=== PATIENT | female | born 1945 | race Caucasian/White ===

== ENCOUNTER → 2017-09-09 10:16 | Outpatient (CLI) | payer MEDICARE ==
[~2017-09-09 10:16] MED LIST: ALBUTEROL2.5 MG/3 M INH; ATROVENT 0.02%2.5 ML UPD; CARBIDOPA-LEVO1 EAC2 PO; FLUTICASONE PRO16 GM NASAL; LEVOTHYROXINE125 MCG PO; METOPROLOL TART25 MG PO; MOBIC7.5 MG PO; PROZAC10 MG PO; TRELEGY ELLIPTA INH; VENTOLIN HFA18 GM INH; ZYRTEC10 MG PO
== END | disposition home or self-care (01) ==
LOC: D.MRI 10:16
DX: S83.221A Peripheral tear of medial meniscus, current injury, right knee, initial encounter (principal)

== ENCOUNTER → 2017-11-04 14:36 | Outpatient (CLI) | payer MEDICARE | END | disposition home or self-care (01) | LOC: D.MRI 14:36 | DX: M25.551 Pain in right hip (principal) ==

== ENCOUNTER 2017-11-18 05:15 | Day surgery (SDC) | payer MEDICARE ==
[2017-11-16 09:50] LABS: BASOPHILS 0.6 % (0-2); EOSINOPHILS 3.3 % (0-7); HEMATOCRIT 41.7 % (36.0-48.0); HEMOGLOBIN 14.2 g/dL (12-16); IMMATURE GRANULOCYTES 0.1 % (0-5); LYMPHOCYTES 20.2 % (15-50); MCH 33.3 pg (26.0-34.0); MCHC 34.1 g/dL (31.0-37.0); MCV 97.7 fL (80.0-100.0); MEAN PLATELET VOLUME 11.2 fL (7.4-10.4); MONOCYTES 8.7 % (2-11); NEUTROPHILS 67.1 % (40-80); PLATELET COUNT 230 10x3/uL (130-400); RBC 4.27 10x6/uL (4.00-5.40); RDW 13.6 % (11.5-14.5)
[2017-11-16 09:56] LABS: ANION GAP 11.2 mmol/L (8-16); CALCIUM 8.7 mg/dL (8.5-10.1); CREATININE - SERUM 1.1 mg/dL (0.6-1.3); POTASSIUM - SERUM 4.2 mmol/L (3.5-5.1)
[~2017-11-18] VITALS: Ht 172.7 cm; Wt 97.5 kg
[2017-11-18 06:13] VITALS: BP 122/47; Ht 172.7 cm; Wt 97.5 kg
== END 2017-11-18 10:30 | disposition home or self-care (01) ==
LOC: D.OPS 05:15 → D.PAN 07:30 → D.OPS 10:30
PROVIDERS: Orthopaedic Surgery
DX: S83.281A Other tear of lateral meniscus, current injury, right knee, initial encounter (principal); M13.861 Other specified arthritis, right knee; M94.261 Chondromalacia, right knee; M65.861 Other synovitis and tenosynovitis, right lower leg; Z01.812 Encounter for preprocedural laboratory examination

== ENCOUNTER 2017-12-04 11:31 | Emergency (ER) | payer MEDICARE ==
[~2017-12-04] VITALS: Ht 172.7 cm; Wt 90.9 kg
[2017-12-04 11:37] VITALS: Ht 172.7 cm; Wt 90.9 kg
[2017-12-04 12:22] LABS: BASOPHILS 0.8 % (0-2); EOSINOPHILS 3.3 % (0-7); HEMATOCRIT 42.6 % (36.0-48.0); HEMOGLOBIN 14.2 g/dL (12-16); IMMATURE GRANULOCYTES 0.2 % (0-5); LYMPHOCYTES 22.8 % (15-50); MCH 32.7 pg (26.0-34.0); MCHC 33.3 g/dL (31.0-37.0); MCV 98.2 fL (80.0-100.0); MEAN PLATELET VOLUME 11.4 fL (7.4-10.4); MONOCYTES 7.7 % (2-11); NEUTROPHILS 65.2 % (40-80); PLATELET COUNT 251 10x3/uL (130-400); RBC 4.34 10x6/uL (4.00-5.40); RDW 13.3 % (11.5-14.5); WBC 6.6 10x3/uL (4.8-10.8)
[2017-12-04 12:40] LABS: ALBUMIN 3.7 g/dL (3.4-5.0); ALKALINE PHOSPHATASE 72 U/L (46-116); ALT (SGPT) 27 U/L (10-68); BILIRUBIN - TOTAL 0.52 mg/dL (0.2-1.3); CALC OSMOLALITY 286 mosm/kg (275-300); CALCIUM 8.8 mg/dL (8.5-10.1); CARBON DIOXIDE 26.6 mmol/L (21.0-32.0); CHLORIDE - SERUM 106 mmol/L (98-107); CREATININE - SERUM 1.1 mg/dL (0.6-1.3); GLUCOSE 88 mg/dL (74-106); POTASSIUM - SERUM 4.2 mmol/L (3.5-5.1); PROTEIN - SERUM 6.5 g/dL (6.4-8.2); SODIUM 143 mmol/L (136-145); UREA NITROGEN 21 mg/dL (7-18); eGFR NON AFRICAN AMERICAN 52 mL/min (90-120)
[2017-12-04 12:41] LABS: C-REACTIVE PROTEIN < 0.2 mg/dL (0.0-0.9)
[2017-12-04] MEDS ORDERED: AUGMENTIN 875-11 TAB PO (13:19)
[2017-12-04 13:39] VITALS: BP 157/63
[2017-12-04 14:34] LABS: ERYTHROCYTE SEDIMENTATION RATE 4 mm/hr (0-30)
== END 2017-12-04 13:37 | disposition home or self-care (01) ==
LOC: D.ER 11:31
PROVIDERS: Family Medicine
DX: Z98.890 Other specified postprocedural states (principal); R22.41 Localized swelling, mass and lump, right lower limb; I10 Essential (primary) hypertension; I25.810 Atherosclerosis of coronary artery bypass graft(s) without angina pectoris; J44.9 Chronic obstructive pulmonary disease, unspecified; K21.9 Gastro-esophageal reflux disease without esophagitis

== ENCOUNTER → 2018-07-27 12:36 | Outpatient (CLI) | payer MEDICARE ==
[2017-12-04 11:37] VITALS: BMI 30.4
[~2018-07-27 12:36] MED LIST changes: +AUGMENTIN 875-11 TAB PO
[2018-08-02 15:11] LABS: IMMUNOGLOBULIN E 102 IU/mL (6-495)
== END | disposition home or self-care (01) ==
LOC: D.RT 12:36
PROVIDERS: ATTEND Internal Medicine Pulmonary Disease
DX: J44.9 Chronic obstructive pulmonary disease, unspecified (principal); J45.909 Unspecified asthma, uncomplicated

== ENCOUNTER 2018-09-13 12:04 | Observation (INO) | payer MEDICARE ==
[~2018-09-13] VITALS: Ht 172.7 cm; Wt 95.9 kg
--- NOTE | ~2018-09-13 | OP ---
PATIENT NAME: ЮЛИЯ SANTACRUZ SANDY MEDICAL RECORD: [id number] :45 LOCATION:[facility] ADMISSION DATE: SURGEON: DEWAYNE RODRIGUEZ MD DATE OF OPERATION: 09/13/2018 PREOPERATIVE DIAGNOSES: 1. Symptomatic bradycardia. 2. Syncopal episode. POSTOPERATIVE DIAGNOSES: 1. Symptomatic bradycardia. 2. Syncopal episode. PROCEDURE: Left subclavian vein dual lead pacemaker placement. SURGEON: Dewayne Rodriguez MD CO-SURGEON: Barrington Todd MD REPORT OF OPERATION: The patient's left chest was prepped and draped in sterile fashion. A 20 mL of 1% lidocaine with epinephrine was infused into the surrounding tissues. A transverse superolateral chest incision was made and a subcutaneous pouch was made over the pectoral fascia. Franklin were used to cannulate the left subclavian veins times 2 and guidewires were advanced with ease. Fluoro was used to note that the wires were in good position in the venous system. Dilator and trocar device was placed over the wires and the wires and dilators were removed. The 2 leads were placed in the venous system, and at this point, Dr. Todd positioned the leads appropriately in the atrium and the ventricle. Once they were noted to be functioning appropriately, then these were sutured into place with #0 Ti-Crons. The leads were affixed to the pacemaker and the pacemaker was placed in the subcutaneous pouch and sutured to the pectoral fascia using a single interrupted #0 Ti-Cron. We irrigated out the wound with antibiotic solution and then closed the subcutaneous tissues with interrupted 3-0 Vicryl. The skin was closed with running subcutaneous 5-0 Monocryl and dressed appropriately. COMPLICATIONS: None. CONDITION: Stable. ANESTHESIA: Local MAC. BLOOD LOSS: Minimal. TRANSINT:[id number] Voice Confirmation ID: [id number] DOCUMENT ID: [id number] DEWAYNE RODRIGUEZ MD CC: [id number] DICTATION DATE: 09/13/18 161 GLUTEN SETTLING TENDER: 09/13/18 1701 [facility] [address] [place] [id number]
--- NOTE | ~2018-09-13 | HEMODYNAMI ---
PATIENT:ЮЛИЯ SANTACRUZ JULY MEDICAL RECORD: [id number] : 45 [id number] ADMISSION DATE: 09/13/18 Generatedon:09/13/201819:55 Patient name: ЮЛИЯ SANTACRUZ Patient #: [id number] SSN: : 1945 Date of study: 09/13/2018 Page: Of Hemodynamic Procedure Report Patient Data Patient Demographics Procedure consent was obtained First Name: ЮЛИЯ Gender: Female Last Name: NEETA : 1945 Middle Initial: JULY Age: 72 year(s) Patient #: [id number] Race: Unknown Additional ID: [id number] Contact details [address]: [address] [place] [address] State: [place] City: [place] Zip code: [address] Past Medical History Allergies Allergen Reaction Date Comments Reported Other allergy 09/13/2018 LASIX Other allergy 09/13/2018 furosemide Admission Admission Data Admission Date: 09/13/2018 Admission Time: 17:23 Room #: D.2124 Weight (lbs.): 211.64 Weight (kg.): 96 Lab Results Lab Result Date: 09/13/2018 Lab Result Time: 0:00 Biochemistry Name Units Result Min Max BUN mg/dl 29 --(----)-* 7 18 Creatinine mg/dl 1.2 --(---*)-- 0.6 1.3 eGFR ml/min 47 *-(----)-- 90 120 NONAFRICAN CBC Name Units Result Min Max Hematocrit % 41.9 -*(----)-- 42 54 Hemoglobin g/dl 14.1 --(*---)-- 13.5 17.5 Procedure Procedure Types Cath Procedure Diagnostic Procedure PPM/ICD Permanent Pacer Lead Repos. Procedure Description Procedure Date Procedure Date: 09/13/2018 Procedure Start Time: 19:26 Procedure Staff Name Function Barrington Hickey MD Performing Physician Davidson Ignacio MD Assisting physician Stephanie Morrissey RN Nurse Brayden Diego RT Scrub Anthony Allen RT Monitor Procedure Data Cath Procedure Fluoroscopy Diagnostic fluoroscopy Total fluoroscopy Time: 1.6 time: 1.6 min min Diagnostic fluoroscopy Total fluoroscopy dose: 54 dose: 54 mGy mGy Contrast Material Contrast Material Type Amount (ml) Isovue 300 0 Estimated blood loss: 5 ml Procedure Complications No complications Procedure Medications Medication Administration Route Dosage 0.9% NaCl I.V. 100 ml/hr Oxygen etCO2 Nasal cannula 2 l/min Lidocaine 1% with added to field 20 ml Epi Ancef (1Gm/50ml NS) I.V.P.B 1 g Ancef Irrigation Topical 1 g (1gm/500ml NS) Versed I.V. 2 mg Fentanyl I.V. 50 mcg Versed I.V. 2 mg Fentanyl I.V. 50 mcg Hemodynamics Rest HGB: 14.1 (g/dl) Heart Rate: 137 (bpm) Snapshots Pre Cath Intra NCS Post Cath Vital Signs Time Heart Resp SPO2 etCO2 NIBP (mmHg) Rhythm Pain Sedation Rate (ipm) (%) (mmHg) Status Level (bpm) 19:06:02 123 10 97 27.6 162/78(102) Paced 0 (11) 10(A) , No pain 19:11:01 130 13 100 31.4 Measuring Paced 0 (11) 10(A) , No pain 19:11:26 67 14 100 31.4 165/81(123) Paced 0 (11) 10(A) , No pain 19:15:48 114 17 98 35.1 138/63(97) Paced 0 (11) 10(A) , No pain 19:20:47 89 15 98 26.9 Measuring Paced 0 (11) 10(A) , No pain 19:21:08 131 10 98 22.4 137/68(90) Paced 0 (11) 10(A) , No pain 19:25:26 130 14 98 40.4 130/60(101) Paced 0 (11) 10(A) , No pain 19:29:42 104 12 98 29.9 131/70(107) Paced 0 (11) 10(A) , No pain 19:34:06 85 16 98 30.7 102/63(86) Paced 0 (11) 10(A) , No pain 19:39:05 68 11 100 22.4 Measuring Paced 0 (11) 10(A) , No pain 19:39:07 68 11 100 18.7 132/73(104) Paced 0 (11) 10(A) , No pain 19:43:29 88 13 100 25.4 151/73(103) Paced 0 (11) 10(A) , No pain 19:48:28 69 10 100 29.2 Measuring Paced 0 (11) 10(A) , No pain 19:48:57 71 12 100 30.7 140/69(105) Paced 0 (11) 10(A) , No pain 19:53:25 71 8 100 5.9 158/66(99) Paced 0 (11) 10(A) , No pain Medications Time Medication Route Dose Verified Delivered Reason Notes Effectiv eness by by 19:13:46 0.9% NaCl I.V. 100 Barrington Stephanie ml/hr St Darryl Morrissey MD RN 19:14:07 Oxygen etCO2 2 Barrington Stephanie used for Nasal l/min [facility] Darryl Morrissey procedure cannula RN 19:14:14 Lidocaine added 20 ml Davidson Cedeño for local 1% with Epi to Mateus Ignacio MD anesthetic field 19:14:26 Ancef I.V.P.B 1 g Davidson Brown Per (1Gm/50ml Mateus Morrissey physician NS) RN 19:14:37 Ancef Topical 1 g Davidson Cedeño used for Irrigation Mateus Ignacio MD procedure (1gm/500ml NS) 19:23:19 Versed I.V. 2 mg Barrington Stephanie for [facility] Darryl Morrissey sedation RN 19:23:25 Fentanyl I.V. 50 Barrington Stephanie [place] [facility] [place] [facility] Morrissey sedation RN 19:28:29 Versed I.V. 2 mg Barrington Stephanie for [facility] Darryl Morrissey sedation RN 19:28:33 Fentanyl I.V. 50 Barrington Cosbyyla for [facility] [place] [facility] Darryl Morrissey sedation heel finisher Log Time Note 18:35:50 Patient Weight : 211.64 lbs 18:38:06 Informed consent obtained and on chart 18:40:09 Procedure type changed to Cath procedure, Diagnostic procedure, PPM/ICD, Permanent Pacer Lead Repos. 18:41:25 Procedure Status PPM/ Gen Change/ Lead Revision/ Temp. 18:41:32 Time tracking: Stay late (Procedures after 5:00pm) 18:47:54 Brayden Diego RT(R) sent for patient. Start room use. 18:54:07 Plan of Care:Hemodynamics will remain stable., Cardiac rhythm will remain stable., Comfort level will be maintained., Respiratory function will remain adequate., Patient/ family verbilizes understanding of procedure., Procedure tolerated without complication., Recovers from procedure without complications.. 18:54:12 Patient received from Med II to CCL 1 Alert and oriented. Tansferred to table in Supine position. 18:54:13 Warm blankets applied, and nestor hugger turned on for patient comfort. 18:54:15 Correct patient and procedure confirmed by team. 18:54:15 ECG and BP/O2 sat monitors applied to patient. 18:54:16 Pre-procedure instructions explained to patient. 18:54:17 Pre-op teaching completed and patient verbalized understanding. 19:04:34 Vital chart was started 19:07:55 Baseline sample Acquired. 19:07:58 Rhythm: sinus rhythm , paced 19:08:00 Full Disclosure recording started 19:08:22 [employer] outside energy sales representatives Kennedy Schmid present for procedure. 19:09:53 Family in patients room. 19:10:02 Patient NPO since Breakfast. 19:10:24 Patient allergic to Other allergyfurosemide 19:11:05 Is the patient allergic to Iodine/contrast media? No. 19:11:24 Is patient on blood thinner?No 19:11:55 Patient diabetic? No. 19:12:00 Previous problem with sedation/anesthesia? No ? 19:12:01 Snore? Yes 19:12:02 Sleep apnea? Yes 19:12:14 Deviated septum? No 19:12:14 Opens mouth fully? Yes 19:12:17 Sticks out tongue? Yes 19:12:23 Airway obstruction? Yes COPD 19:12:32 Dentures? No ? 19:12:36 Patient pain scale 0/10 ?. 19:12:40 IV patent on arrival in right forearm with 0.9% NaCl at [facility]. 19:13:46 0.9% NaCl 100 ml/hr I.V. was administered by Stephanie Morrissey RN; ; 19:14:07 Oxygen 2 l/min etCO2 Nasal cannula was administered by Stephanie Morrissey RN; used for procedure; 19:14:14 Lidocaine 1% with Epi 20 ml added to field was administered by Davidson Ignacio MD; for local anesthetic; 19:14:26 Ancef (1Gm/50ml NS) 1 g I.V.P.B was administered by Stephanie Morrissey RN; Per physician; 19:14:37 Ancef Irrigation (1gm/500ml NS) 1 g Topical was administered by Davidson Ignacio MD; used for procedure; 19:14:54 Lab results completed and on chart. 19:19:42 Grounding pad site Left thigh. 19:19:44 Grounding pad site free from injury. 19:20:02 H&P Date Dictated: 09/13/2018 Within 30 days and on chart.. 19:20:13 Left chest area was prepped with chlora-prep and draped in sterile fashion 19:20:14 Alarms reviewed by R. N. 19:20:33 Pre sharps counted by scrub and verified by RN: Sutures: 15; Sponges: 5; Stick needles: 0; Skin needles: 2; Blade: 1; Cautery: 1 19:21:18 Physician arrived 19:21:18 --------ALL STOP TIME OUT------ 19:21:18 Final Timeout: patient, procedure, and site verified with staff and physician. All members of the team are in agreement. 19:21:23 Left chest site verified by team. 19:21:29 Fire Safety Assessment: A--An alcohol-based skin anteseptic being used preoperatively., B--The operative or invasive procedure is being performed above the xiphoid process or in the oropharynx., C--Open oxygen or nitrous oxide is being used. 19:21:34 Physical assessment completed. ASA score P 2 - A patient with mild systemic disease as per Barrington Hickey MD. 19:21:38 Sedation plan: IV Moderate Sedation Medication:Versed, Fentanyl 19:23:19 Versed 2 mg I.V. was administered by Stephanie Morrissey RN; for sedation; 19:23:25 Fentanyl 50 mcg I.V. was administered by Stephanie Morrissey RN; for sedation; 19:26:31 Lidocaine 2% was administered to left subclavicular area by Davidson Ignacio MD . 19:26:51 Incision made to left subclavicular area. 19:27:36 Use device set MICHAEL PPM 19:27:37 2-0 Ticron Multipack ([id number]) opened to sterile field. 19:27:38 3-0 Vicryl Single Pack [id number] opened to sterile field. 19:27:39 5-0 Monocryl PS2 [id number] opened to sterile field. 19:27:39 Cautery Tip Bid Manager opened to sterile field. 19:27:40 Cautery Pushbutton Pencil opened to sterile field. 19:27:40 Mepilex Dressing ([id number]) opened to sterile field. 19:28:29 Versed 2 mg I.V. was administered by Stephanie Morrissey RN; for sedation; 19:28:33 Fentanyl 50 mcg I.V. was administered by Stephanie Morrissey RN; for sedation; 19:28:40 Device pocket was reopened. 19:29:20 PPM Dual was removed.. 19:32:20 Ventricular lead positioned. 19:36:15 PPM Dual was attached to lead(s) and inserted into pocket. 19:36:38 Device pocket was irrigated with Ancef. 19:36:46 Ventricular lead attachment was completed with 2-0 ticron. 19:40:10 Generator was sutured in place with 2-0 ticron. 19:40:20 Subcutaneous closure was completed with 3-0 vicryl plus. 19:48:45 Skin closure was completed with 5-0 monocryl. 19:50:29 Procedure ended.(Physican Out) 19:51:58 Fluoroscopy time 01.60 minutes. 19:52:02 Fluoroscopy dose: 54 mGy 19:52:02 Flurop Dose total: 54 19:52:05 Contrast amount:Isovue 300 0ml. 19:53:09 Sharps counted by scrub and verified by R.N. 19:53:20 Post sharps counted by scrub and verified by RN: Sutures: 15; Sponges: 5; Stick needles: 0; Skin needles: 2; Blade: 1; Cautery: 1 19:53:25 Insertion/operative site no bleeding no hematoma. 19:53:37 Post left subclavian vein:stable, soft, clean and dry 19:53:39 Post Procedure Pulses reassessed and unchanged 19:53:43 Post-procedure physical assessment completed. ASA score P 2 - A patient with mild systemic disease as per Barrington Hickey MD. 19:53:50 Post procedure rhythm: sinus rhythm , paced 19:53:52 Estimated blood loss: 5 ml 19:53:54 Post procedure instruction explained to patient.Patient verbalizes understanding. 19:53:54 Patient needs reinforcement of post procedure teaching. 19:54:12 Procedure and supply charges have been captured, reviewed, submitted and are correct. 19:54:15 Procedure Complication : No complications 19:54:17 Vital chart was stopped 19:54:17 See physician's report for complete and final results. 19:54:19 Report given to PCU. 19:54:22 Patient transfered to PCU with Stretcher. 19:54:27 End room use (Document Last) Device Usage Item Name Manufacture Quantity Catalog Hospital Part Current Minimal Lot# / Number Charge Number Stock Stock Serial# Code 2-0 Ticron Ethicon 0 [id number] 5 Multipack ([id number]) 3-0 Vicryl Ethicon 1 [id number] 5 Single Pack [id number] 5-0 Monocryl Ethicon 1 [id number] [id number] 5 PS2 Y495G Cautery Tip Microtek 1 [id number] 5 [employer] Cautery Microtek 1 [id number] 5 [employer] Pencil Mepilex Cardinal 1 [id number] 5 [employer] ([id number]) Signature Audit [place] Stage Time Signature Unsigned Intra-Procedure 09/13/2018 Anthony Allen 7:55:07 PM RT(R) Signatures Performing Physician : Signature : Barrington Hickey MD Date : Time : Nurse : Stephanie Morrissey RN Signature : Date : Time : Monitor : Anthony Allen RT Signature : Date : Time : [address] [facility] [place] [address]
--- NOTE | ~2018-09-13 | HEMODYNAMI ---
PATIENT:ЮЛИЯ SANTACRUZ JULY MEDICAL RECORD: [id number] : 45 LOCATION:[facility] ADMISSION DATE: 09/13/18 Generatedon:09/13/201816:17 Patient name: ЮЛИЯ SANTACRUZ Patient #: [id number] SSN: : 1945 Date of study: 09/13/2018 Page: Of Hemodynamic Procedure Report Patient Data Patient Demographics Procedure consent was obtained First Name: ЮЛИЯ Gender: Female Last Name: NEETA : 1945 Middle Initial: JULY Age: 72 year(s) Patient #: [id number] Race: Unknown Additional ID: [id number] Contact details [address]: [address] [place] [address] State: [place] City: [place] Zip code: [address] Past Medical History Allergies Allergen Reaction Date Comments Reported Other allergy 09/13/2018 LASIX Admission Admission Data Admission Date: 09/13/2018 Admission Time: 12:04 Weight (lbs.): 211.64 Weight (kg.): 96 Lab Results Lab Result Date: 09/13/2018 Lab Result Time: 0:00 Biochemistry Name Units Result Min Max BUN mg/dl 29 --(----)-* 7 18 Creatinine mg/dl 1.2 --(---*)-- 0.6 1.3 eGFR ml/min 47 *-(----)-- 90 120 NONAFRICAN CBC Name Units Result Min Max Hematocrit % 41.9 -*(----)-- 42 54 Hemoglobin g/dl 14.1 --(*---)-- 13.5 17.5 Procedure Procedure Types Cath Procedure Diagnostic Procedure PPM/ICD PPM Dual Implant Sedation Charges Moderate Sedation up to 30 minutes Procedure Description Procedure Date Procedure Date: 09/13/2018 Procedure Start Time: 15:43 Procedure End Time: 16:15 Procedure Staff Name Function Barrington Hickey MD Performing Physician Carly Lund RT Monitor Leticia Worley RT Scrjolynn Morrissey RN Nurse Favian Mcintosh RN Co Director Procedure Data Cath Procedure Fluoroscopy Diagnostic fluoroscopy Total fluoroscopy Time: 3.1 time: 3.1 min min Diagnostic fluoroscopy Total fluoroscopy dose: 87 dose: 87 mGy mGy Estimated blood loss: 10 ml Procedure Complications No complications Procedure Medications Medication Administration Route Dosage 0.9% NaCl I.V. 100 ml/hr Oxygen etCO2 Nasal cannula 2 l/min Lidocaine 1% added to field 20 Ancef Irrigation Topical 1 g (1gm/500ml NS) Versed I.V. 2 mg Fentanyl I.V. 50 mcg Fentanyl I.V. 50 mcg Hemodynamics Rest HGB: 14.1 (g/dl) Heart Rate: 25 (bpm) Snapshots Pre Cath Intra NCS Post Cath Vital Signs Time Heart Resp SPO2 etCO2 NIBP Rhythm Pain Sedation Rate (ipm) (%) (mmHg) (mmHg) Status Level (bpm) 15:34:32 26 10 98 26.2 135/40(59) 3 0 (11) 10(A) degree , No Heart pain Block 15:39:31 25 26 99 31.4 Measuring 3 0 (11) 10(A) degree , No Heart pain Block 15:40:55 25 15 97 28.4 Time 3 0 (11) 10(A) Exceeded degree , No Heart pain Block 15:43:49 24 24 98 31.4 80/31(44) 3 0 (11) 10(A) degree , No Heart pain Block 15:48:38 24 12 98 31.4 Time 3 0 (11) 9(A) Exceeded degree , No Heart pain Block 15:50:37 56 11 99 41.1 87/49(72) 3 0 (11) 9(A) degree , No Heart pain Block 15:55:24 90 10 96 41.1 97/52(83) Paced 0 (11) 9(A) , No pain 15:59:28 60 14 98 36.6 101/62(89) Paced 0 (11) 9(A) , No pain 16:04:27 62 12 99 35.1 Measuring Paced 0 (11) 9(A) , No pain 16:04:35 63 12 99 38.9 124/64(89) Paced 0 (11) 10(A) , No pain 16:09:34 62 14 100 36.6 Measuring Paced 0 (11) 10(A) , No pain 16:09:52 66 14 100 35.9 137/64(88) Paced 0 (11) 10(A) , No pain 16:14:10 61 15 100 32.1 135/67(91) Paced 0 (11) 10(A) , No pain Medications Time Medication Route Dose Verified Delivered Reason Notes Effectiv eness by by 15:33:16 0.9% NaCl I.V. 100 Barrington Stephanie used for ml/hr [facility] procedure MD MOHAN 15:33:26 Oxygen etCO2 2 Barrington Stephnaie used for Nasal l/min [facility] procedure cannula MD MOHAN 15:34:03 Lidocaine added 20ml Barrington Ferris for local 1% to vial [facility] anesthetic field MD DUMAS 15:34:18 Ancef Topical 1 g Barrington Barrington used for Irrigation [facility] procedure (1gm/500ml MD DUMAS NS) 15:39:00 Versed I.V. 2 mg Barrington Stephanie for [place] [facility] sedation MD MOHAN 15:39:13 Fentanyl I.V. 50 Barrington Stephanie for mcg [place] [facility] sedation MD MOHAN 15:44:46 Fentanyl I.V. 50 Barrington Stephanie for mcg [place] [facility] sedation MD MOHANethnographic materials conservator Log Time Note 15:16:24 Signed procedure consent form obtained from patient. 15:16:36 Procedure Status PPM/ Gen Change/ Lead Revision/ Temp. 15:16:38 Time tracking: Regular hours (M-F 7:00 - 5:00) 15:16:42 Plan of Care:Hemodynamics will remain stable., Cardiac rhythm will remain stable., Comfort level will be maintained., Respiratory function will remain adequate., Patient/ family verbilizes understanding of procedure., Procedure tolerated without complication., Recovers from procedure without complications.. 15:16:49 Stephanie Morrissey RN sent for patient. Start room use. 15:17:26 Patient allergic to Other allergyLASIX 15:17:57 Lab Result : BUN 29 mg/dl 15:17:57 Lab Result : Creatinine 1.2 mg/dl 15:17:57 Lab Result : eGFR NONAFRICAN 47 ml/min 15:17:57 Lab Result : Hemoglobin 14.1 g/dl 15:17:57 Lab Result : Hematocrit 41.9 % 15:20:05 Patient Weight : 211.64 lbs 15:23:55 Patient received from ED to CCL 3 Alert and oriented. Tansferred to table in Supine position. 15:23:56 Warm blankets applied, and nestor hugger turned on for patient comfort. 15:23:57 Correct patient and procedure confirmed by team. 15:23:59 ECG and BP/O2 sat monitors applied to patient. 15:33:03 Vital chart was started 15:33:16 0.9% NaCl 100 ml/hr I.V. was administered by Stephanie Morrissey RN; used for procedure; 15:33:24 Baseline sample Acquired. 15:33:26 Oxygen 2 l/min etCO2 Nasal cannula was administered by Stephanie Morrissey RN; used for procedure; 15:33:28 Rhythm: 3rd degree heart block 15:33:30 Full Disclosure recording started 15:33:34 H&P Date Dictated: 09/13/2018 ER History on chart.. 15:33:35 Pre-procedure instructions explained to patient. 15:33:35 Pre-op teaching completed and patient verbalized understanding. 15:33:37 Family in waiting room. 15:33:39 Patient NPO since Midnight. 15:33:40 Is patient on blood thinner?No 15:33:42 Patient diabetic? No. 15:33:51 Patient not . Patient is over age 55. 15:33:52 Previous problem with sedation/anesthesia? No ? 15:33:54 Snore? Yes 15:33:55 Sleep apnea? Yes 15:34:01 Deviated septum? No 15:34:02 Opens mouth fully? Yes 15:34:03 Lidocaine 1% 20ml vial added to field was administered by Barrington Hickey MD; for local anesthetic; 15:34:03 Sticks out tongue? Yes 15:34:06 Airway obstruction? Yes COPD 15:34:09 Dentures? No ? 15:34:12 Patient pain scale 0/10 ?. 15:34:18 Ancef Irrigation (1gm/500ml NS) 1 g Topical was administered by Barrington Hickey MD; used for procedure; 15:34:20 IV patent on arrival in right antecubital with 0.9% NaCl at KVO. 15:34:22 Lab results completed and on chart. 15:34:32 Left chest area was prepped with chlora-prep and draped in sterile fashion 15:34:34 Alarms reviewed by Isauro Morrell. 15:34:34 Sharps counted by scrub and verified by R.N. 15:34:37 Use device set MICHAEL PPM 15:34:39 2-0 Ticron Multipack ([id number]) opened to sterile field. 15:34:39 3-0 Vicryl Single Pack [id number] opened to sterile field. 15:34:39 5-0 Monocryl PS2 [id number] opened to sterile field. 15:34:40 Cautery Tip Developmental Specialist opened to sterile field. 15:34:41 Cautery Pushbutton Pencil opened to sterile field. 15:34:41 Mepilex Dressing ([id number]) opened to sterile field. 15:34:42 Immobilizer Extra Large opened to sterile field. 15:34:48 Medtronic Advisa MRI PPM Dual Generator [id number] opened to sterile field. 15:34:58 Medtronic 4074-52 PPM Lead opened to sterile field. 15:34:58 Medtronic 4574-45 PPM Lead opened to sterile field. 15:38:02 --------ALL STOP TIME OUT------ 15:38:03 Final Timeout: patient, procedure, and site verified with staff and physician. All members of the team are in agreement. 15:38:06 Left chest site verified by team. 15:38:11 Fire Safety Assessment: A--An alcohol-based skin anteseptic being used preoperatively., C--Open oxygen or nitrous oxide is being used., D--An ESU, laser, or fiber-optic light is being used. 15:38:15 Physical assessment completed. ASA score P 3 - A patient with severe systemic disease as per Barrington Hickey MD. 15:38:22 3a) 45-59 Moderately reduced kidney function. 15:38:25 Sedation plan: IV Moderate Sedation Medication:Versed, Fentanyl 15:38:47 Medtronic ict sales representative LETICIA COSTELLO present for procedure. 15:39:00 Versed 2 mg I.V. was administered by Stephanie Morrissey RN; for sedation; 15:39:13 Fentanyl 50 mcg I.V. was administered by Stephanie Morrissey RN; for sedation; 15:39:14 Pre sharps counted by scrub and verified by RN: Sutures: 14; Sponges: 5; Stick needles: 2; Skin needles: 2; Blade: 1; Cautery: 1 15:39:16 Grounding pad site Left thigh. 15:39:18 Grounding pad site free from injury. 15:42:48 Procedure started. 15:43:10 Lidocaine 1% was administered to left subclavicular area by Barrington Hickey MD . 15:44:37 Incision made to left subclavicular area. 15:44:46 Fentanyl 50 mcg I.V. was administered by Stephanie Morrissey RN; for sedation; 15:46:27 Generator pocket made/opened. 15:47:15 Left subclavian vein accessed with 7Fr Peel Away Sheath. 15:47:23 Ventricular lead inserted and advanced. 15:47:50 Left subclavian vein accessed with 7Fr Peel Away Sheath. 15:47:55 Atrial lead inserted and advanced. 15:51:01 Ventricular lead positioned. 15:51:12 Ventricular lead tested. 15:53:09 Ventricular lead repositioned. 15:55:01 Ventricular lead tested. 15:56:19 Atrial lead positioned. 15:57:25 Atrial lead tested. 15:59:22 Peel-a-way sheath was split and removed. 15:59:23 Peel-a-way sheath was split and removed. 15:59:28 PPM Dual was attached to lead(s) and inserted into pocket. 16:00:06 PPM Dual was inserted subcutaneously to left chest. 16:01:23 Atrial lead attachment was completed with 2-0 ticron. 16:01:26 Ventricular lead attachment was completed with 2-0 ticron. 16::31 Device pocket was irrigated with Ancef. 16::41 Generator was sutured in place with 2-0 ticron. 16::47 Subcutaneous closure was completed with 3-0 vicryl plus. 16::53 Skin closure was completed with 5-0 monocryl. 16:10:06 Parameters-- Generator: Mode: DDDR. Lower Rate: 60bpm. Upper Rate: 130bpm. 16:10:55 Parameters--Ventricular P/R Wave: 3.5mV. Current: .7mA; Threshold: .7V; Impedence: 1481OHMS. 16:12:47 Procedure ended.(Physican Out) 16:13:23 Parameters--Atrial P/R Wave: 3.5mV. Current: .4mA; Threshold: .4V; Impedence: 834OHMS. 16:13:32 Lt Chest incision was dressed with Mepilex dressing. 16:13:53 Fluoroscopy time 03.10 minutes. 16:14:00 Flurop Dose total: 87 16:14:00 Fluoroscopy dose: 87 mGy 16:14:06 Sharps counted by scrub and verified by R.N. 16:14:20 Post sharps counted by scrub and verified by RN: Sutures: 2; Sponges: 5; Stick needles: 14; Skin needles: 2; Blade: 1; Cautery: 1 16:14:29 Post-procedure physical assessment completed. ASA score P 3 - A patient with severe systemic disease as per Barrington Hickey MD. 16:14:34 Post procedure rhythm: sinus rhythm , paced 16:14:36 Estimated blood loss: 10 ml 16:14:37 Post procedure instruction explained to patient.Patient verbalizes understanding. 16:14:37 Patient needs reinforcement of post procedure teaching. 16:15:02 Procedure type changed to Cath procedure, Diagnostic procedure, PPM/ICD, PPM Dual Implant, Sedation Charges, Moderate Sedation up to 30 minutes 16:15:17 Procedure and supply charges have been captured, reviewed, submitted and are correct. 16:15:20 Procedure Complication : No complications 16:15:22 Vital chart was stopped 16:15:22 See physician's report for complete and final results. 16:15:24 Report given to PCU. 16:15:26 Patient transfered to PCU with Bed. 16:15:27 Procedure ended. 16:15:27 Full Disclosure recording stopped 16:15:30 End room use (Document Last) Device Usage Item Name Manufacture Quantity Catalog Hospital Part Current Minimal Lot# / Serial# Number Charge Number Stock Stock Code 2-0 Ticron Ethicon 9 [id number] [id number] 65635 [id number] 5 Multipack ([id number]) 3-0 Vicryl Ethicon 1 [id number] 604923 359809 104124 5 Single Pack [id number] 5-0 Monocryl Ethicon 1 [id number] 470196 311078 152676 5 PS2 Y495G Cautery Tip Microtek 1 [id number] 225194 465449 203051 5 Developmental Specialist [employer] Cautery Microtek 1 [id number] 902312 87637 655545 5 Pushbutton Medical Inc. Pencil Mepilex Cardinal 1 569764 556170 036702 806421 5 Dressing Health (648565) Immobilizer Cardinal 1 [id number] 230209 255011 122170 5 Extra Large Health Medtronic Medtronic 1 A2DR01 959506 911870 022340 5 [id number] Advisa MRI [id number] PPM Dual EXP:05-21-2019 Generator P A2DR01 [id number] Medtronic Medtronic 1 4074-52 339008 930061 805662 5 [id number] 4074-52 PPM [id number] Lead [id number] EXP:0 [id number] 08-14-2019 Medtronic Medtronic 1 4574-45 460257 040476 481078 5 [id number] 4574-45 PPM [id number] Lead [id number] EXP:1 [id number] 04-21-2018 Signature Audit Denio Stage Time Signature Unsigned Intra-Procedure 09/13/2018 Carly Lund 4:17:17 PM RT(R) Signatures Performing Physician : Signature : Barrington Hickey MD Date : Time : Monitor : Carly Lund Signature : RT Date : Time : Nurse : Stephanie Morrissey RN Signature : Date : Time : [facility] [address] [place] [address]
[~2018-09-13 12:04] MED LIST changes: -PROZAC10 MG PO; +PROZAC20 MG PO
--- NOTE | 2018-09-13 12:15 | NUR ---
UPON PT ARRIVAL TO ROOM, HEART MONITOR ELECTRODES PLACED ON PT, HR NOTED TO BE BETWEEN 25-35. EDP NOTIFIED. DEFIB PADS PLACED ON PT. CRASH CART AT BEDSIDE.
[2018-09-13] MEDS ORDERED: TRELEGY ELLIPT1 EACH INH (12:22)
[2018-09-13] MEDS ORDERED: SYNTHROID150 MCG PO (12:22)
[2018-09-13 12:30] VITALS: BP 118/42
[2018-09-13 12:47] LABS: BASOPHILS 0.5 % (0-2); EOSINOPHILS 3.7 % (0-7); HEMATOCRIT 41.9 % (36.0-48.0); HEMOGLOBIN 14.1 g/dL (12-16); IMMATURE GRANULOCYTES 0.2 % (0-5); LYMPHOCYTES 19.1 % (15-50); MCH 32.2 pg (26.0-34.0); MCHC 33.7 g/dL (31.0-37.0); MCV 95.7 fL (80.0-100.0); MEAN PLATELET VOLUME 10.4 fL (7.4-10.4); MONOCYTES 7.7 % (2-11); NEUTROPHILS 68.8 % (40-80); PLATELET COUNT 245 10x3/uL (130-400); RBC 4.38 10x6/uL (4.00-5.40); RDW 14.1 % (11.5-14.5); WBC 9.3 10x3/uL (4.8-10.8)
[2018-09-13 13:00] LABS: APTT 25.1 SECONDS (22.8-39.4); INR 1.04 (0.85-1.17); PROTIME 13.1 SECONDS (11.6-15.0)
[2018-09-13 13:08] LABS: ALBUMIN 3.9 g/dL (3.4-5.0); ALKALINE PHOSPHATASE 96 U/L (46-116); ALT (SGPT) 15 U/L (10-68); CALC OSMOLALITY 281 mosm/kg (275-300); CALCIUM 8.8 mg/dL (8.5-10.1); CHLORIDE - SERUM 104 mmol/L (98-107); CREATININE - SERUM 1.2 mg/dL (0.6-1.3); GLUCOSE 95 mg/dL (74-106); POTASSIUM - SERUM 4.4 mmol/L (3.5-5.1); PROTEIN - SERUM 6.6 g/dL (6.4-8.2); SODIUM 138 mmol/L (136-145); UREA NITROGEN 29 mg/dL (7-18); eGFR NON AFRICAN AMERICAN 47 mL/min (90-120)
[2018-09-13 13:19] LABS: CKMB 0.7 U/L (0.0-3.6); CREATINE KINASE 55 UL (21-215)
[2018-09-13 13:22] LABS: TROPONIN-I < 0.017 ng/mL (0.000-0.060)
[2018-09-13 15:15] VITALS: BP 129/39
--- NOTE | 2018-09-13 15:22 | NUR ---
UNABLE TO CHART HR UNDER VITALS DUE TO EXTREMELY LOW HEART RATE. HR AT 1515, 26 BPM.
--- NOTE | 2018-09-13 15:23 | NUR ---
TIME 1246: HR 32 1300: HR 25 1315: HR 26 1330: HR 25 1400: HR 25 1415: HR 25 1430: HR 28 1445: HR 27 1500: HR 25
--- NOTE | 2018-09-13 17:10 | NUR ---
RECIEVED PT FROM FIRE INVESTIGATION LIEUTENANT. LEFT SHOULDER DRESSING CLEAN DRY AND INTACT. SLING IN PLACE. VITAL SIGNS STABLE. ADMIT ASSESSMENT PER RN
[2018-09-13 17:58] VITALS: BP 142/76; Ht 172.7 cm; Wt 95.9 kg
--- NOTE | 2018-09-13 18:53 | NUR ---
RECIEVED REPORT FROM DAY SHIFT NURSE, PT GOING TO FIRER LOW PRESSURE VIA BED FOR PACEMAKER REVISION.
[2018-09-13 20:00] VITALS: BP 168/73
--- NOTE | 2018-09-13 20:14 | NUR ---
RECIEVED BACK TO ROOM 2123 FROM BOX CHIPPER. PT A&O. RESPERATIONS NON LABORED ON O2 AT 2 LITERS IVIA MN. VITALS STABLE. DRSG TO LET UPPER CHEST C/D/I. NO SWELLING OR BLEEDING NOTED. PTS LEFT ARM IN SLING. RIGHT ARM IV WITH NS INFUSING AT 75 CC/HR, IV SITE CLEAN AND DRY. OFFERED PT YAN PRECIADO, PT DECLINED BUT ASKED FOR JUICE. CRANBERRY JUICE GIVEN OVER ICE. PT CURRENTLY DENIES PAIN OR OTHER NEEDS. HUSBSAND AT BED SIDE, BED LOW, CL IN REACH.
--- NOTE | 2018-09-13 21:19 | NUR ---
METALIZING MACHINE OPERATOR AUTOMATIC AT BED SIDE TO ASSIST PT WITH USE OF BED AGUSTIN.
--- NOTE | 2018-09-13 23:04 | NUR ---
IN BED WATCHING TV, DENIES PAIN OR NEEDS.
[2018-09-14] VITALS: BP 139/76
[2018-09-14 04:00] VITALS: BP 145/89
--- NOTE | 2018-09-14 07:40 | NUR ---
ASSESSMENT COMPLETED. ALERT AND ORIENTED. TELEMERTY SHOWS PACED RHYTHM. PACER TO LEFT CHEST. SLING IN USE. SL TO RIGHT ARM. DENIES ANY NEEDS. SR UP WITH CALL LIGHT IN REACH
--- NOTE | 2018-09-14 10:47 | NUR ---
PT DISCHARGED. IV DCD WITH TIP INTACT. INSTRUCTIONS GIVEN TO PT AND FAMILY. TO PRIEVATE CAR PER WHEELCHAIR
--- NOTE | 2018-09-14 13:03 | OP ---
PATIENT NAME: ЮЛИЯ SANTACRUZ SANDY MEDICAL RECORD: [id number] :45 LOCATION:D.M2 D.2124 ADMISSION DATE:09/13/18 SURGEON: JORDAN CRUZ MD DATE OF OPERATION: 09/13/2018 PROCEDURE: Permanent pacemaker placement, lead portion. INDICATION: Complete heart block. SURGEON: Dewayne Bone MD DESCRIPTION OF PROCEDURE: After left subclavian was cannulated via modified Seldinger technique via Dr. Bone, first, under fluoroscopic guidance, the RV lead was placed in the RV apex without difficulty. After adequate R waves and thresholds were obtained, I then placed the right atrial lead in the right atrial appendage without difficulty. After adequate P waves and thresholds were obtained, the leads were attached to appropriate poles of the generator and the pocket was closed via Dr. Bone. IMPRESSION: Successful lead portion of permanent pacemaker placement on Юлия Santacruz. ESTIMATED BLOOD LOSS: Minimal. DISPOSITION: To the floor, stable. COMPLICATIONS: None. TRANSINT:[id number] Voice Confirmation ID: [id number] DOCUMENT ID: [id number] JORDAN CRUZ MD at 1303 CC: [id number] DICTATION DATE: 09/13/18 1606 ORIGINATION SPECIALIST: 09/13/18 1649 DIS IN 09/14/18 [place] [id number] [place] [address]
--- NOTE | 2018-09-14 13:03 | OP ---
PATIENT NAME: ЮЛИЯ SANTACRUZ JULY MEDICAL RECORD: [id number] :45 LOCATION:D.M2 D.2124 ADMISSION DATE:09/13/18 SURGEON: JORDAN CRUZ MD DATE OF OPERATION: 09/13/2018 PROCEDURE: Reposition of ventricular lead. INDICATION: Ventricular lead migration. DESCRIPTION OF PROCEDURE: After the previously placed pocket was opened via Dr. Ignacio, under fluoroscopic guidance, the lead was noted to migrate proximally. Then, using guidewire, I was able to place this back in the RV apex with capture down to 0.3 and excellent R waves. The lead was reattached to the generator pole and the pocket was closed via Dr. Ignacio. IMPRESSION: Successful lead revision of ventricular lead. TRANSINT:[id number] Voice Confirmation ID: [id number] DOCUMENT ID: [id number] JORDAN CRUZ MD at 1303 CC: [id number] DICTATION DATE: 09/13/181953 DIRECTOR OUTCOMES: 09/13/182003 DIS IN 09/14/18 [facility] [address] [place] [address]
--- NOTE | 2018-09-15 09:05 | MORECARE ---
CASE MANAGEMENT DISCHARGE SUMMARY PATIENT: ЮЛИЯ SANTACRUZ UNIT: [id number] ADM DATE: 09/13/18 AGE: 73 : 45 SEX: F ROOM/BED: D.8003 AUTHOR: ODALIS CHANEY PHYSICIAN: REFERRING PHYSICIAN: JORDAN CRUZ MD DATE OF SERVICE: 09/15/18 Discharge Plan Patient Name: ЮЛИЯ SANTACRUZ Facility: [facility]:[place] : 1945 Planned Disposition: Home Anticipated Discharge Date: 09/14/18 Discharge Date: 09/14/2018 Expected LOS: 1 Initial Reviewer: [email or web address] Initial Review Date: 09/15/2018 Generated: 09/15/18 10:05 am Patient Name: ЮЛИЯ SANTACRUZ Page [id number] at 0905 All edits/amendments must be made on the electronic document DICTATION DATE: 09/15/18904 SR. VENDOR MANAGEMENT ASSOCIATE: MARIO 09/15/18904 RPT#: [id number] DC DATE:09/14/18 STATUS: DIS IN [facility] [address] [place] [address] END OF REPORT
== END 2018-09-14 10:50 | disposition home or self-care (01) ==
LOC: D.ER 12:04 → D.M2 17:23 → OBSVTIME 17:24 → D.M2 09-14 10:50
PROVIDERS: Family Medicine; ADMIT Internal Medicine Interventional Cardiology; ATTEND Internal Medicine Interventional Cardiology
DX: I49.5 Sick sinus syndrome (principal); I25.10 Atherosclerotic heart disease of native coronary artery without angina pectoris; I10 Essential (primary) hypertension; J44.9 Chronic obstructive pulmonary disease, unspecified; K21.9 Gastro-esophageal reflux disease without esophagitis